=== PATIENT | female | born 1970 | race Caucasian/White ===

== ENCOUNTER 2017-10-15 13:53 | Emergency (ER) | payer MEDICAID ==
[2017-10-15] MEDS: SOD CHLORIDE 0.9% 500 ML IV (15:45)
[2017-10-15] MEDS: METOCLOPRAMIDE 10 MG INJ IV (15:45)
[2017-10-15] MEDS: DIPHENHYDRAMINE 50 MG INJ IV (15:45)
== END 2017-10-15 16:55 | disposition home or self-care (01) ==
LOC: FTE 13:53
DX: G43.909 Migraine, unspecified, not intractable, without status migrainosus (principal); J06.9 Acute upper respiratory infection, unspecified; R40.2142 Coma scale, eyes open, spontaneous, at arrival to emergency department; R40.2252 Coma scale, best verbal response, oriented, at arrival to emergency department; R40.2362 Coma scale, best motor response, obeys commands, at arrival to emergency department
CPT/HCPCS: 96374; 96375; 99284-25

== ENCOUNTER 2018-08-29 10:17 | Emergency (ER) | payer MEDICAID ==
[2018-08-29] MEDS: SOD CHLORIDE 0.9% 1,000 ML IV (11:10)
[2018-08-29 11:21] LABS: ADD UMIC NO; UR ASCORBIC ACID NEGATIVE (NEGATIVE); UR BILIRUBIN (Dip) NEGATIVE (NEGATIVE); UR BLOOD (Dip) NEGATIVE (NEGATIVE); UR CLARITY SLIGHTLY CLOUDY (CLEAR); UR COLOR YELLOW (YELLOW); UR GLUCOSE (Dip) NEGATIVE (NEGATIVE); UR KETONES (Dip) NEGATIVE (NEGATIVE); UR LEUKOCYTE ESTERASE (Dip) NEGATIVE Leu/ul (NEGATIVE); UR MUCUS FEW /HPF (NONE SEEN); UR NITRITE (Dip) NEGATIVE (NEGATIVE); UR RBC 1 /HPF (0-5); UR SPECIFIC GRAVITY (Dip) 1.017 (1.003-1.030); UR SQUAMOUS EPITHELIAL CELL FEW /HPF (FEW); UR TOTAL PROTEIN (Dip) NEGATIVE (NEGATIVE); UR UROBILINOGEN (Dip) NEGATIVE (NEGATIVE); UR WBC 2 /HPF (0-5)
[2018-08-29] MEDS: KETOROLAC 30 MG INJ IV (11:28)
[2018-08-29] MEDS: PROCHLORPERAZINE 10 MG INJ IV (11:28)
== END 2018-08-29 13:52 | disposition home or self-care (01) ==
LOC: FTE 10:17
DX: R51 Headache (principal); I10 Essential (primary) hypertension; E03.9 Hypothyroidism, unspecified
CPT/HCPCS: 81001; 81003; 81025; 96361; 96374; 96375; 99284-25